=== PATIENT | female | born 2000 | race Caucasian/White ===

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

== ENCOUNTER 2022-02-20 11:41 | Observation (INO) | payer SELFPAY ==
[2022-02-20 13:04] LABS: SARS-COV-2 RT PCR NEGATIVE (NEGATIVE)
--- OUTSIDE RECORDS SUMMARY | 2022-02-20 13:14 | XMS REPORT | Continuity of Care Document ---
:2000 Author Organization [facility] t Address [address] [place] [address] Care Team Providers Name Role Phone Dru SEQUEIRA, R Primary Care Physician Heriberto SEQUEIRA N Attending Clinician Radha Attending Clinician Unavailable Payers Payer Name Policy Type Policy Number Effective Date Expiration Date S ource Problems Condition Condition Condition Status Onset Resolution Last Treating Co mments Source Name Details Category Date Date Treatment Clinician Date Seasonal Seasonal Problem [facility] Strep Strep Diagnosis Active [facility] Sore Sore Diagnosis Active [facility] No known No known Disease Unive rs active active ity of problems problems [facility] Allergies, Adverse Reactions, Alerts Allergy Allergy Status Severity Reaction(s) Onset Inactive Treating Comm ents Source Name Type Date Date Clinician Penicill Propensi Active Hives Univer s ins ty to 5-25 ity of adverse 00:00: [place] reaction [address] [place] [address] s [place] penicill Adverse Active hives, [facility] Reaction swelling [facility] Social History Social Habit Start Date Stop Date Quantity Comments Source Exposure to Not sure [facility] SARS-CoV-2 [facility] (event) Branch Alcohol intake 2021-10-10 2021-10-10 Ex-drinker University 00:00:00 00:00:00 (finding) [facility] Tobacco use and 2021-05-18 2021-05-18 Never used Universit y of exposure 00:00:00 00:00:00 [facility] Sex Assigned At [birth year] Universit y of 00:00:00 00:00:00 [facility] Smoking Status Start Date Stop Date Source Never smoker [facility] Medications Ordered Filled Start Stop Current Ordering Indication Dosage Frequency Signature Comments Components Source Medication Medication Date Date Medication? Clinician (SIG) Name Name metroNIDAZO 2020-11- No [id number] 500mg Take 1 [facility] LE (FLAGYL) 12-17 tablet by it y of 500 mg 00:00: 05:59 mouth 2 [place] tablet 00 :00 (two) Medical times [place] daily for 7 days. mv-mn/iron/ Yes Take by Un oanh folic 6-30 mouth. ity of acid/herb 08:51: [place] [id number] Medical (VITAMIN D3 Branch COMPLETE ORAL) mv-mn/iron/ Yes Take by Un oanh folic 6-30 mouth. ity of acid/herb 08:51: [place] [id number] Medical (VITAMIN D3 Branch COMPLETE ORAL) mv-mn/iron/ Yes Take by Un oanh folic 6-30 mouth. ity of acid/herb 08:51: [place] [id number] Medical (VITAMIN D3 Branch COMPLETE ORAL) Doxycycline Doxycycline 2019- No Cinthya [address] [facility] [address] Monohydrate Monohydrate 07-29 [facility] - 00:00: 00:00 [facility] 00 :00 l [facility] ent Clinics Vital Signs Vital Name Observation Time Observation Value Comments Source Systolic blood 2021-10-10 19:35:00 112 mm[Hg] Univer sity of pressure [facility] Diastolic blood 2021-10-10 19:35:00 72 mm[Hg] Unive rsity of pressure [facility] Heart rate 2021-10-10 19:35:00 72 /min [facility] Body temperature 2021-10-10 19:35:00 35.78 [facility] Respiratory rate 2021-10-10 19:35:00 18 /min [facility] Body weight 2021-10-10 19:35:00 69.264 kg [facility] BMI 2021-10-10 19:35:00 22.55 kg/m2 [facility] Procedures Procedure Date / Time Performed Performing Clinician Sourc e POCT URINALYSIS W/O 2021-10-10 19:37:00 Summer Louis [facility] [place] SPECIFIC GRAVITY [facility] Er Encounters Start End Encounter Admission Attending Care Care Encounter Source Date/Time Date/Time Type Type Clinicians Facility Department ID 2021-12-16 2021-12-16 [facility] [id number] Univers 00:00:00 00:00:00 Summer Restrepo NEURO UROLOGIST [id number] it y of REGIONAL [id number] Rodrigo as MATERNAL [id number] [facility] ical & CHILD [address] [place] [address] 2021-10-17 2021-10-17 Telephone Heriberto MNRICH [id number] Univers 00:00:00 00:00:00 Summer Restrepo NEURO UROLOGIST [id number] it y of REGIONAL [id number] Rodrigo as MATERNAL [id number] [facility] ical & CHILD [address] [place] [address] 2021-10-10 2021-10-10 Office [facility] [id number] [facility] 13:15:49 13:56:06 Visit Summer Restrepo NEURO UROLOGIST [id number] it y of REGIONAL [id number] Rodrigo as MATERNAL [id number] [facility] & CHILD [address] [place] [address] 2020-08-17 2020-08-17 Outpatient Radha, [facility] [id number] [facility] 15:00:00 15:00:00 M[facility] [id number] [facility] 2019-07-29 2019-07-29 [facility] [id number] [facility] [address] 14:20:00 14:20:[address] [facility] 2018-09-02 2018-09-02 [facility] [id number] [address] 09:10:00 09:10:[address] [facility] 2018-08-26 2018-08-26 [facility] [id number] [address] 14:00:00 14:00:00 [facility] ent Clinics Results Test Description Test Time Test Comments Results Result Comments Source POCT URINALYSIS W/O SPECIFIC GRAVITY 2021-10-10 19:37:00 Test Item Value Reference Range Interpretation Comme nts POCT PH U (test code = 3254) 5 mg/dl 5-8 POCT U LEUK EST (test code = 3263) NEGATIVE Negative - Negative POCT U NIT (test code = 3262) NEGATIVE Negative - Negative POCT U PROT (test code = 3259) TRACE Negative - Negative POCT U GLU (test code = 3256) NEGATIVE Negative - Negative POCT U KETONE (test code = 3258) NEGATIVE Negative - Negative POCT U BLD (test code = 3257) NEGATIVE Negative - Negative [facility]
[2022-02-20] MEDS ORDERED: HYDROMORPHONE HCL 1 MG/ML INJ IV PRN (14:08)
[2022-02-20] MEDS ORDERED: ONDANSETRON 4 MG (ODT) TAB PO PRN (15:00)
[2022-02-20] MEDS ORDERED: ACETAMINOPHEN 325 MG TABLET PO PRN (15:00)
[2022-02-20] MEDS ORDERED: ONDANSETRON 4 MG/2 ML VIAL IV PRN (15:00)
[2022-02-20] MEDS ORDERED: DIPHENHYDRAMINE 25 MG TAB/CAP PO PRN (15:00)
[2022-02-20] MEDS ORDERED: NACHLORIDE 0.45% 1,000 ML IV SCH (15:00)
[2022-02-20] MEDS ORDERED: POLYETHYL GLY 3350 17 GM/DOSE PO PRN (15:00)
[2022-02-20 15:58] LABS: Absolute Lymphocytes (CBC) 1.9 K/uL (0.7-4.9); Hematocrit 40.2 % (36.0-45.0); Lymphocytes % 26.5 % (15.3-44.8); MPV 10.8 fL (7.6-11.3); RBC Red Blood Cell Count 4.35 M/uL (3.86-4.86)
[2022-02-20 16:11] LABS: Protime INR 1.09
[2022-02-20 16:20] LABS: ALT/SGPT 29 U/L (12-78); AST/SGOT 23 U/L (15-37); Albumin 3.6 g/dL (3.4-5.0); Alkaline Phosphatase 33 U/L (45-117); BUN Blood Urea Nitrogen 13 mg/dL (7-18); Bicarbonate 26 mmol/L (21-32); Bilirubin Direct 0.3 mg/dL (0-0.2); Bilirubin Total 1.6 mg/dL (0.2-1.0); Glucose Level 83 mg/dL (74-106); Potassium 3.7 mmol/L (3.5-5.1); Protein, Total 6.3 g/dL (6.4-8.2); Sodium Level 139 mmol/L (136-145)
[2022-02-20] MEDS: CEFOXITIN 1 GM in NA CHLORIDE 0.9% 50 ML IVPB SCH ×2 (18:15→21:00)
--- NOTE | 2022-02-20 20:16 | RAD REPORT ---
EXAM DESCRIPTION: CT - Abdomen Pelvis W Contrast - 02/20/2022 8:03 pm CLINICAL HISTORY: Abdominal pain/right lower quadrant pain COMPARISON: none. TECHNIQUE: Computed axial tomography of the abdomen pelvis was obtained. 100 cc Isovue-300 was admin istered intravenously. Oral contrast was given All CT scans are performed using dose optimization technique as appropriate and may include automated exposure control or mA/KV adjustment according to patient size. FINDINGS: The liver, spleen, pancreas, adrenal and kidneys appear unremarkable. There is no evidence of diverticulitis. No adnexal mass. The appendix is not visualized. There is no stranding adjacent to the cecum. IMPRESSION: No acute abnormality is displayed.
--- NOTE | 2022-02-20 20:18 | RAD REPORT ---
EXAM DESCRIPTION: Emily Single View02/20/2022 4:55 pm CLINICAL HISTORY: Abdominal pain COMPARISON: none FINDINGS: The lungs appear clear of acute infiltrate. The heart is normal size IMPRESSION: No acute abnormalities displayed
[2022-02-20] MEDS: LOPERAMIDE HCL 2 MG CAPSULE PO PRN (23:05)
[2022-02-21] MEDS ORDERED: CEFOXITIN 1 GM in NA CHLORIDE 0.9% 50 ML IVPB SCH (05:00)
[2022-02-21 06:09] LABS: Absolute Lymphocytes (CBC) 2.8 K/uL (0.7-4.9); Hematocrit 40.6 % (36.0-45.0); Lymphocytes % 34.8 % (15.3-44.8); MPV 10.1 fL (7.6-11.3); RBC Red Blood Cell Count 4.38 M/uL (3.86-4.86)
[2022-02-21 06:26] LABS: Magnesium 2.1 mg/dL (1.8-2.4); Potassium 3.7 mmol/L (3.5-5.1)
[2022-02-21] MEDS ORDERED: POTASSIUM CL SA 10 MEQ TAB PO ONE ×2 (06:37→09:00)
[2022-02-21 08:29] VITALS: BP 99/56; TEMP 97.4
[2022-02-21] MEDS: LOPERAMIDE HCL 2 MG CAPSULE PO PRN (08:55)
[2022-02-21 09:37] VITALS: O2SAT 99
--- NOTE | 2022-02-21 22:00 | P.DS ---
Admission Date: 02/20/22 Discharge Date: 02/21/22 Disposition: ROUTINE DISCHARGE Discharge Condition: [facility] Hospital Course: NIKO HAD SEVERE ABDOMEN PAIN AND TENDERNESS AT RLQ. SHE WAS ALSO DEHYDRATED AND IT TOOK 3 NURSES TO START IV ON HER. SHE HAD CT ABDOMEN AND PELVIS AFTER THAT. CT IS NEGATIVE. WITH IV ABX HER PAIN HAS IMPROVED SIGNIFICANTLY. SHE MAY HAVE EARLY PID. 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 SHE IS STABLE FOR DISCHARGE ON ORAL ABX Vital Signs/Physical Exam: Temp Pulse Resp BP Pulse Ox 97.4 F 53 18 99/56 L 100 02/21/22 08:00 02/21/22 08:00 02/21/22 08:00 02/21/22 08:00 02/21/22 08:00 Laboratory Data at Discharge: WBC 8.0 K/uL (4.3-10.9) D 02/21/22 06:00 Hgb 13.6 g/dL (12.0-15.0) 02/21/22 06:00 Hct 40.6 % (36.0-45.0) 02/21/22 06:00 Plt Count 179 K/uL (152-406) 02/21/22 06:00 PT 12.0 SECONDS (9.5-12.5) 02/20/22 15:16 INR 1.09 02/20/22 15:16 APTT 30.6 SECONDS (24.3-36.9) 02/20/22 15:16 Sodium 141 mmol/L (136-145) 02/21/22 06:00 Potassium Cancelled 02/21/22 09:00 BUN 13 mg/dL (7-18) 02/21/22 06:00 Creatinine 0.98 mg/dL (0.55-1.3) 02/21/22 06:00 Glucose 91 mg/dL (74-106) 02/21/22 06:00 Magnesium 2.1 mg/dL (1.8-2.4) 02/21/22 06:00 Total Bilirubin 1.6 mg/dL (0.2-1.0) H 02/20/22 15:16 AST 23 U/L (15-37) 02/20/22 15:16 ALT 29 U/L (12-78) 02/20/22 15:16 Alkaline Phosphatase 33 U/L (45-117) L 02/20/22 15:16 Home Medications: Cefuroxime [Ceftin] 250 mg PO BID #14 tab 02/21/22 New Medications: Cefuroxime [Ceftin] 250 mg PO BID #14 tab Followup: Pavel Meyer MD [ACTIVE - CAN ADMIT] - (Call to schedule appointment)
== END 2022-02-21 09:00 | disposition home or self-care (01) ==
LOC: 2ND 13:10
PROVIDERS: ADMIT Internal Medicine; ATTEND Internal Medicine
DX: R10.31 Right lower quadrant pain (principal); E86.0 Dehydration; R10.813 Right lower quadrant abdominal tenderness
CPT/HCPCS: 0240U; 36415; 71045; 74177; 80048; 80076; 83735; 84703; 85025; 85610; 85730; G0378; G0379; J0694; Q9967